=== PATIENT | female | born 1965 | race African-American/Black ===

== ENCOUNTER 2017-01-19 18:34 | Emergency (ER) | payer MEDICAID, OTHER ==
[~2017-01-19] VITALS: Ht 157.5 cm; Wt 68.0 kg
[~2017-01-19 18:34] MED LIST: PREDNISONE20 MG ORAL
[2017-01-19] MEDS ORDERED: PROTONIX40 MG ORAL (19:01)
[2017-01-19] MEDS ORDERED: CEPHALEXIN500 MG ORAL (19:01)
[2017-01-19] MEDS ORDERED: CYMBALTA30 MG ORAL (19:01)
[2017-01-19] MEDS ORDERED: TRAMADOL HCL50 MG ORAL (19:01)
[2017-01-19] MEDS ORDERED: Lidocaine 1% 10mg/ml/EPI 0.01mg/ml 50ml INJ ONE (19:15)
[2017-01-19] MEDS ORDERED: Bactrim DS (160mg/800mg) tab ORAL ONE (19:15)
[2017-01-19] MEDS ORDERED: BACTRIM DS TAB1 EAC1 ORAL (19:26)
[2017-01-19 19:35] VITALS: BP 131/82
--- NOTE | 2017-01-19 22:53 | Emergency Room Report ---
History of Present Illness General Chief Complaint: Skin Rash/Abscess Source: Patient, Medical Record Present Illness HPI Patient material female presented after increased skin rash for the past few days. Patient stated that she had increased pain swelling to her left flank. Patient had been taking medications for chronic low back pain. The patient had been started on antibiotics 2 days ago by her physician. She denied any fever. Denied prior history of immunocompromise. Allergies: Coded Allergies: PENICILLINS (Unverified Allergy, Severe, Hives, 04/15/14) Patient History : 2 Para: 2 Reviewed Nursing Documentation: PMH: Agreed, PSxH: Agreed Review of Systems All Other Systems: negative except mentioned in HPI Physical Exam Vital Signs Date Time Temp Pulse Resp B/P Pulse Ox O2 Delivery O2 Flow Rate FiO2 01/19/17 18:54 98.2 83 16 117/76 99 01/19/17 19:35 Room Air General Appearance: normal inspection, alert, GCS 15 Head: normocephalic, atraumatic ENT: hearing grossly normal, normal voice Neck: full range of motion, supple Respiratory: no respiratory distress, speaking full sentences Cardiovascular #1: normal inspection, regular rate, rhythm Gastrointestinal: normal inspection Musculoskeletal: normal inspection, no calf tenderness Neurologic: normal inspection, alert, oriented x3, responsive, normal gait Psychiatric: mood/affect normal Skin: no rash, other - fluctuance to left flank, erythema, pointing Procedures Incision and Drainage Incision and Drainage : Consent: Written Site: back Blade Size: 15 I & D Procedure: betadine prep, sterile drapes applied, sterile dressing applied Wound Location: back Wound's Depth, Shape: superficial Wound Length (cm): 1 Wound Explored: clean Anesthesia: Lidocaine w/ Epi Volume Anesthetic (ccs): 4 Patient Tolerated: Well Complications: None Progress drained approximately 10cc of purulent green material Medical Decision Making Diagnostic Impression: Primary Impression: Abscess ER Course Patient presented for skin rash. Differential diagnosis included was not limited to abscess, cellulitis, folliculitis, among others. The patient appear to have an abscess. The patient was skin rash presents is incised and drained large amount of purulent material. The patient was given prescription for Bactrim. The patient is advised to have the wound recheck with primary care physician in the next 2 days. Last Vital Signs Date Time Temp Pulse Resp B/P Pulse Ox O2 Delivery O2 Flow Rate FiO2 01/19/17 19:35 98.2 72 14 131/82 99 Room Air Status: improved Disposition: HOME, SELF-CARE Condition: Stable Scripts Trimethoprim/Sulfamethoxazole 160/800* (BACTRIM DS TABLET*) 1 Each Tablet 1 TAB ORAL Q12H, #14 TAB 0 Refills Prov: Luis Paul 01/19/17 Referrals: [facility]ERR[facility] (PCP) primary care physician 2-3 days for wound recheck Patient Instructions: Abscess Luis Paul January 19, 2017 22:52
== END 2017-01-19 19:35 | disposition home or self-care (01) ==
LOC: EMR 19:31
DX: L02.212 Cutaneous abscess of back [any part, except buttock and flank] (principal); Z88.0 Allergy status to penicillin
CPT/HCPCS: 10060; 82962